=== PATIENT | female | born 1990 | race African-American/Black ===

== ENCOUNTER 2017-01-18 19:48 | Emergency (ER) | payer SELFPAY ==
[~2017-01-18 19:48] MED LIST: RANI150C PO
[2017-01-18 19:52] VITALS: BP 111/77; PULSE 80; RESP 20; TEMP 98; O2SAT 98
--- NOTE | 2017-01-18 20:09 | PD ---
HPI Chief Complaint: Chest Pain Time Seen by Provider: 19:59 Travel History International Travel<30 days: No Contact w/Intl Traveler<30days: No Traveled to known affect area: No History of Present Illness HPI This 26-year-old female is complaining of right-sided chest pain. She's been having this pain for about 2 weeks. She does not smoke cigarettes the pain is aggravated by certain movements. She does have a history of acid reflux no family history of heart disease. She does not have hypertension or diabetes. The pain is fairly constant PFSH Past Medical History Diminished Hearing: No Past Surgical History Other Surgery: Yes (CYST REMOVED FROM LEFT AXILLARY AREA) Social History Alcohol Use: Yes (OCC) Tobacco Use: No Substance Use: No Allergies-Medications (Allergen,Severity, Reaction): Coded Allergies: No Known Allergies (Unverified , 01/18/17) Reported Meds & Prescriptions Reported Meds & Active Scripts Active No Active Prescriptions or Reported Medications Review of Systems General / Constitutional: No: Fever, Chills Eyes: No: Diploplia, Blurred Vision HENT: No: Headaches, Vertigo Cardiovascular: Positive: Chest Pain or Discomfort, No: Palpitations Respiratory: No: Cough, Shortness of Breath Gastrointestinal: No: Nausea, Vomiting Genitourinary: No: Frequency Musculoskeletal: No: Myalgias, Arthralgias Skin: No Rash, No Itching Psychiatric: No: Anxiety Endocrine: No: Heat Intolerance Physical Exam Narrative GENERAL: Well-developed female SKIN: Focused skin assessment warm/dry. HEAD: Atraumatic. Normocephalic. EYES: Pupils equal and round. No scleral icterus. No injection or drainage. ENT: No nasal bleeding or discharge. Mucous membranes pink and moist. NECK: Trachea midline. No JVD. CARDIOVASCULAR: Regular rate and rhythm. No murmur appreciated. RESPIRATORY: No accessory muscle use. Clear to auscultation. Breath sounds equal bilaterally. There is some right-sided costochondral tenderness GASTROINTESTINAL: Abdomen soft, non-tender, nondistended. Hepatic and splenic margins not palpable. MUSCULOSKELETAL: No obvious deformities. No clubbing. No cyanosis. No edema. NEUROLOGICAL: Awake and alert. No obvious cranial nerve deficits. Motor grossly within normal limits. Normal speech. PSYCHIATRIC: Appropriate mood and affect; insight and judgment normal. Data Data Last Documented VS Vital Signs Date Time Temp Pulse Resp B/P Pulse Ox O2 Delivery O2 Flow Rate FiO2 01/18/17 20:07 73 18 99 Room Air 01/18/17 19:52 98.0 111/77 Orders Electrocardiogram (01/18/17 20:03) Chest, Single Ap (01/18/17 20:03) [facility] Medical Decision Making Medical Screen Exam Complete: Yes Emergency Medical Condition: Yes Medical Record Reviewed: Yes Differential Diagnosis Differential includes atypical chest pain, chest wall pain, costochondritis Narrative Course Chest x-ray is negative. EKG shows normal sinus rhythm. His pain is reproduced with palpation of the chest wall and appears to be chest wall pain Diagnosis Primary Impression: Chest wall pain Additional Instructions: Take Advil or Aleve for pain Scripts No Active Prescriptions or Reported Meds Disposition: 01 DISCHARGE HOME Condition: Stable Joseph An MD January 18, 2017 20:09
--- NOTE | 2017-01-18 20:21 | RADHPO ---
EXAM DATE/TIME: 01/18/2017 20:08 [facility] COMPARISON: No previous studies available for comparison. INDICATIONS : Right sided chest pain for 3 weeks MEDICAL HISTORY : None. SURGICAL HISTORY : None. ENCOUNTER: Initial ACUITY: 3 weeks PAIN SCORE: 5/10 LOCATION: Right chest FINDINGS: A single view of the chest demonstrates the lungs to be symmetrically aerated without evidence of mas s, infiltrate or effusion. The cardiomediastinal contours are unremarkable. Osseous structures are intact. CONCLUSION: No acute disease. Rafi Guzman MD on January 18, 2017 at 20:18 Board Certified Radiologist. This report was verified electronically.
[2017-01-18 21:02] VITALS: BP 114/72; PULSE 74; RESP 18; O2SAT 98
--- NOTE | 2017-01-19 18:29 | EKG ---
Date Performed: 01/18/2017 Time Performed: 20:06:24 PTAGE: 26 years EKG: Sinus rhythm rSr'(V1) - probable normal variant Normal ECG Compared to prior tracing no significant change PREVIOUS TRACING : 08/01/2016 08.16 DOCTOR: Ever Mosqueda Interpretating Date/Time 01/19/2017 18:32:09
== END 2017-01-18 21:07 | disposition home or self-care (01) ==
LOC: PHED 19:48
DX: R07.89 Other chest pain (principal); K21.9 Gastro-esophageal reflux disease without esophagitis
CPT/HCPCS: 71010; 93005